=== PATIENT | male | born 1980 | race Hispanic/Latino ===

== ENCOUNTER 2024-06-28 10:44 | Emergency (ER) | payer BC ==
[~2024-06-28] VITALS: Ht 162.6 cm; Wt 88.2 kg
--- NOTE | 2024-06-28 10:56 | ERN ---
ED Note History of Present Illness Stated Complaint: HEADACHE Chief Complaint: Headache Time Seen by MD: 10:48 Time Seen by Midlevel: 10:48 Dictation: 43-year-old male who presents to the ED for evaluation of headache that he has had on and off for the past two months. Patient reports his PCP diagnosed with migraine headaches and prescribed him medication. Patient reports he has not taken all the time and has had no the name of the medication. Denies any fall, trauma, head injury. Reports throbbing headache to the left side of the head. No dizziness, nausea, vomiting, altered vision Allergies: Coded Allergies: No Known Drug Allergies (Unverified Allergy, Unknown, 06/28/24) Past Medical History RN Note Reviewed/Agreed w/PFSH: Yes Review of System Dictation Constitutional: Negative for fever,chills, and weight loss Eyes: Negative for injury, pain,redness, and discharge ENT: Negative for injury,pain or swelling Cardiovascular: Negative for chest pain, palpitations, and edema Respiratory: Negative for shortness of breath, cough, and wheezing, Abdomen/GI: Negative for abdominal pain, nausea, vomiting, diarrhea, and constipation Back: Negative for injury and pain : Negative for injury, bleeding and discharge MS/Extremity: Negative for injury and deformity Skin: Negative for rash, and discoloration Neuro: Negative for weakness, numbness, tingling, and seizure Psych: Negative for suicide ideation, homicidal ideation, and hallucinations Review of Systems: was completed Initial Vital Sign VS Vital Signs Date Time Temp Pulse Resp B/P (MAP) Pulse Ox O2 Delivery O2 Flow Rate FiO2 06/28/24 10:47 97.9 74 16 137/80 98 Room Air 0 Physical Exam Dictation General: awake, alert, NAD Head/Face: Normocephalic, atraumatic Eyes: PERRL, EOMI, vision at baseline ENT: oral cavity clear, TMs clear, no signs of infection Neck: Trachea midline, supple, no nuchal rigidity Cardiovascular: RRR, normal S1/S2, No MRGs, no JVD Respiratory: CTAB, no respiratory distress, No rales or wheezes Abdomen: Soft, non-tender, non-distended, normal bowel sounds, no guarding or rebound. Skin: Warm, dry, normal turgor, no rash MS/Extremity: Pulses equal, no cyanosis, neurovascular intact, FROM Neuro: COAx4, GCS 15, strength 5/5, CN 2-12 intact, normal cerebellar exam, normal gait, normal [id number], normal eowo-[id number] no visualized nystagmus Psych: Normal behavior, mood, and affect normal ED Course ED Course Orders Procedure Category Date Status Time Ketorolac PHA 06/28/24 Complete Tromethamine 15mg/Ml 10:51 Metoclopramide 10 PHA 06/28/24 Complete Mg/2 Ml Vial (Reglan 1 10:51 Diphenhydramine Hcl PHA 06/28/24 Complete (Benadryl Inj) 10:51 0.9%Nacl 1000ml (Ns PHA 06/28/24 Complete 1000ml) 10:51 Current Medications Medications (Trade) Dose Ordered Sig/Roselia Route PRN Reason Start Time Stop Time Status Last Admin Dose Admin Diphenhydramine HCl (BENAdryl INJ) 25 mg ONCE STAT IV 06/28/24 10:51 06/28/24 10:55 DC 06/28/24 13:27 Ketorolac Tromethamine (toRADol) 15 mg ONCE STAT IV 06/28/24 10:51 06/28/24 10:55 DC 06/28/24 13:26 Metoclopramide HCl (regLAN 10MG IV) 10 mg ONCE STAT IVP 06/28/24 10:51 06/28/24 10:55 DC 06/28/24 13:26 Sodium Chloride 1,000 ml @ 0 mls/hr Q0M STAT IV 06/28/24 10:51 06/28/24 10:55 DC 06/28/24 13:26 Vital Signs Date Time Temp Pulse Resp B/P (MAP) Pulse Ox O2 Delivery O2 Flow Rate FiO2 06/28/24 10:47 97.9 74 16 137/80 98 Room Air 0 Medical Decision Making MDM MDM: Differential diagnosis: Headache, migraine, tension headache, SAH Need for hospitalization: Patient does meet criteria for hospitalization. Need for emergency major/minor surgery: No I independently interpreted the test that were performed, results were reviewed by me and considered findings on radiology if ordered. Medical management and examination interpretation discussions were had by me with other qualified healthcare professionals as indicated for the patient's ca re. This patient presents with a headache most consistent with benign headache from either tension type headache vs migraine as he has been dealing with this headache for the past year but recently saw his PCP two months ago and prescribed medication but has been taking them daily.. No headache red flags. Normal [id number]-[id number], ecas-[id number]. No visualized nystagmus. Neurologic exam without evidence of meningismus, AMS, focal neurologic findings so doubt meningitis, encephalitis, stroke. Presentation not consistent with acute intracranial bleed to include SAH (lack of risk factors, headache history). No history of trauma so doubt ICH. Given history and physical temporal arteritis unlikely, as is acute angle closure glaucoma. Doubt carotid artery dissection given no focal neuro deficits, no neck trauma or recent neck strain. Patient with no signs of increased intracranial pressure or weight loss and history and physical suggest more benign headache so less likely mass effect in brain from tumor or abscess or idiopathic intracranial hypertension. Pain was controlled with headache cocktail and patient discharged home with PCP follow up. DX & DISP Disposition: Discharge Departure Impression: Primary Impression: Migraine Condition: Stable Scripts Ibuprofen (Ibuprofen) 600 Mg Tablet 1 TAB PO TID for pain for 10 Days, #30 TAB 0 Refills with food Prov: TANNA CASTELLON 06/28/24 Additional Instructions: DISCHARGE HOME. REST. FOLLOW UP WITH PRIMARY CARE IN 24 HOURS. RETURN TO THE ER FOR ANY ACUTE CHANGE. PATIENT WAS ALSO ADVISED TO FOLLOW-UP WITH PRIMARY CARE PHYSICIAN IN 1 TO 2 DAYS FOR CONTINUED MONITORING. ALL INSTRUCTIONS WERE GIVEN TO LAYMANS TERM AND PATIENT AGREEABLE TO DISCHARGE AND PROPER FOLLOW-UP. I have reviewed the case, and I agree with, Diagnosis and Plan TANNA CASTELLON Jun 28, 2024 10:56
[2024-06-28] MEDS: 0.9%NACL 1000ML 1,000 ML IV STA (13:26)
[2024-06-28] MEDS: metoCLOPRAmide 10 MG/2 ML VIAL IVP STA (13:26)
[2024-06-28] MEDS: ketOROlac 15MG/ML VIAL (15MG/ML) IV STA (13:26)
[2024-06-28] MEDS: DiphenhydrAMINE HCL 50 MG/ML VIAL IV STA (13:27)
[2024-06-28] MEDS ORDERED: FIORIT PO (14:19)
[2024-06-28] MEDS ORDERED: IBUP-2070 PO (14:21)
[2024-06-28 14:26] VITALS: BP 131/76; PULSE 74; RESP 16; TEMP 97.9; O2SAT 98
== END 2024-06-28 14:37 | disposition home or self-care (01) ==
LOC: EDH 10:44
DX: G43.909 Migraine, unspecified, not intractable, without status migrainosus (principal)
CPT/HCPCS: 99284; 96374; 96375; 96361; J1885; J1200; J7030; J2765

== ENCOUNTER 2024-07-16 20:06 | Emergency (ER) | payer BC ==
[~2024-07-16] VITALS: Ht 162.6 cm; Wt 85.7 kg
[~2024-07-16 20:06] MED LIST: IBUP-2070 PO
--- NOTE | 2024-07-16 20:49 | ERN ---
General Chief Complaint: Headache Stated Complaint: C/O CP W/HEADACHE Time Seen by MD: 20:20 Time Seen by Midlevel: 20:20 Source: patient History of Present Illness Initial Comments 43-year-old male who presents to the emergency department due to chest pain onset two days. Patient reports left-sided headache ongoing for multiple years, light sensitive sensitivity. Denies any shortness of breath, abdominal pain, fever or further associated symptoms. Patient previously diagnosed with migraines and is currently taking sumatriptan. PMHx HTN and DM Allergies: Coded Allergies: No Known Drug Allergies (Unverified Allergy, Unknown, 06/28/24) Home Meds Active Scripts Ibuprofen (Ibuprofen) 600 Mg Tablet, 1 TAB PO TID for pain for 10 Days, #30 TAB 0 Refills with food Prov:TANNA CASTELLON 06/28/24 Past Medical History Past Medical History: Diabetes-Type II, High Cholesterol, Hypertension, Se izure, Other Medical History Other: HX OF PEÑALOZA'S PALSY Past Surgical History: None ROS Dictation Constitutional: Negative for fever,chills, and weight loss Eyes: Negative for injury, pain,redness, and discharge ENT: Negative for injury,pain or swelling Cardiovascular: Positive for chest pain Negative for palpitations, and edema Respiratory: Negative for shortness of breath, cough, and wheezing, Abdomen/GI: Negative for abdominal pain, nausea, vomiting, diarrhea, and constipation Back: Negative for injury and pain : Negative for painful urination, bleeding or discharge MS/Extremity: Negative for injury and deformity Skin: Negative for rash, and discoloration Neuro: Positive for headache Negative for weakness, numbness, tingling, and seizure Psych: Negative for suicide ideation, homicidal ideation, and hallucinations Physical Exam Physical Exam Dictation General: awake, alert, no acute distress Head/Face: Normocephalic, atraumatic Eyes: PERRL, EOMI, normal conjunctiva ENT: oral cavity clear, oral mucosa moist Neck: Supple, normal range of motion Cardiovascular: RRR, normal S1/S2 Respiratory: CTAB, no respiratory distress, no rales or wheezes Abdomen: Soft, non-tender, non-distended, no guarding or rebound. Skin: Warm, dry, normal turgor, no rash MS/Extremity: Pulses equal, no cyanosis, neurovascular intact, FROM Neuro: COAx4, GCS 15, strength 5/5, CN 2-12 intact, normal cerebellar exam, normal gait Psych: Normal behavior, mood, and affect normal Results Laboratory and Microbiology Lab and Micro Result Laboratory Tests Test 07/16/24 21:04 White Blood Count 8.4 K/uL (4.8-10.8) Red Blood Count 5.48 MIL/uL (4.50-6.20) Hemoglobin 15.5 g/dL (14.0-18.0) Hematocrit 46.0 % (42-54) Mean Corpuscular Volume 83.9 fL (79-99) Mean Corpuscular Hemoglobin 28.3 pg (27.0-33.0) Mean Corpuscular Hemoglobin Concent 33.7 g/dL (32.0-36.0) Red Cell Distribution Width 12.5 % (11.0-15.5) Platelet Count 222 K/uL (130-400) Mean Platelet Volume 11.1 fL (7.5-10.5) H Immature Granulocyte % (Auto) 0.6 % (0-1) Neutrophils (%) (Auto) 62.8 % (40.0-77.0) Lymphocytes (%) (Auto) 22.2 % (21.0-51.0) Monocytes (%) (Auto) 12.6 % (3.0-13.0) Eosinophils (%) (Auto) 1.3 % (0.0-8.0) Basophils (%) (Auto) 0.5 % (0.0-5.0) Neutrophils # (Auto) 5.3 K/uL (1.8-7.7) Lymphocytes # (Auto) 1.9 K/uL (1.0-4.8) Monocytes # (Auto) 1.1 K/uL (0.1-1.0) H Eosinophils # (Auto) 0.11 K/uL (0.00-0.70) Basophils # (Auto) 0.04 K/uL (0.00-0.20) Absolute Immature Granulocyte (auto 0.05 K/uL (0-1) Nucleated Red Blood Cells 0.0 % (0.0-0.19) Sodium Level 134 mmol/L (136-145) L Potassium Level 3.9 mmol/L (3.5-5.1) Chloride Level 98 mmol/L (101-111) L Carbon Dioxide Level 32 mmol/L (21-32) Blood Urea Nitrogen 17 mg/dL (7-18) Creatinine 0.9 mg/dL (0.5-1.3) Glomerular Filtration Rate Calc 107 mL/min (>90) Random Glucose 254 mg/dL (70-105) H Total Calcium 8.8 mg/dL (8.5-10.1) Troponin I High Sensitivity < 4 ng/L (4-75) L MDM MDM: Differential diagnosis: Migraine, partial hemicrania, cluster headache, tension headache, headache from musculoskeletal issues in the neck Rationale: Tests considered and ordered secondary to shared decision making include: Previous outside records reviewed: Old ER visits. Risk of complication and/or morbidity or mortality of patient management: None Medications-Per medication reconciliation Need for hospitalization: Patient does not meet criteria for hospitalization. Need for emergency major/minor surgery: No There are no social concerns with this patient. Prescription drug management Prescriptions will include symptomatic care Patient's prior external medical records from other ER visits were reviewed by me as indicated. Prior testing and results from previous visits were reviewed. Prior tests were taken into account with medical decision making and resource utilization, independent historian/historians were used to obtain complete medical history. I independently interpreted the test that were performed, results were reviewed by me and considered findings on radiology if ordered. Medical management and examination interpretation discussions were had by me with other qualified healthcare professionals as indicated for the patient's care. ED Course Orders Procedure Category Date Status Time 12 Lead Ekg Tracing- EKG 07/16/24 Logged Technical 20:13 Cbc With Differential LAB 07/16/24 Complete 20:39 Basic Metabolic Panel LAB 07/16/24 Complete 20:39 Urinalysis LAB 07/16/24 Logged W/Microscopic 20:39 Drug Screen Urine LAB 07/16/24 Logged 20:39 Troponin I High LAB 07/16/24 Complete Sensitivity 20:39 12 Lead Ekg Tracing- EKG 07/16/24 Logged Technical 20:39 Ct Head/Brain W/O CT 07/16/24 Resulted Contrast 20:39 0.9%Nacl 1000ml (Ns PHA 07/16/24 Complete 1000ml) 21:00 Diphenhydramine Hcl PHA 07/16/24 Complete (Benadryl Inj) 21:00 Metoclopramide 10 PHA 07/16/24 Complete Mg/2 Ml Vial (Reglan 1 21:00 Ketorolac PHA 07/16/24 Complete Tromethamine 15mg/Ml 21:00 Current Medications Medications (Trade) Dose Ordered Sig/Roselia Route PRN Reason Start Time Stop Time Status Last Admin Dose Admin Diphenhydramine HCl (BENAdryl INJ) 25 mg ONCE ONCE IV 07/16/24 21:00 07/16/24 21:01 DC Ketorolac Tromethamine (toRADol) 15 mg ONCE ONCE IV 07/16/24 21:00 07/16/24 21:01 DC Metoclopramide HCl (regLAN 10MG IV) 10 mg ONCE ONCE IVP 07/16/24 21:00 07/16/24 21:01 DC Sodium Chloride 1,000 ml @ 0 mls/hr ONCE ONCE IV 07/16/24 21:00 07/16/24 21:01 DC Vital Signs Date Time Temp Pulse Resp B/P (MAP) Pulse Ox O2 Delivery O2 Flow Rate FiO2 07/16/24 20:09 100.2 78 20 143/89 99 Room Air 10:00 p.m. I independently evaluated the patient. This is a 43-year-old male with known history of migraines came in with headaches and he also reported a chest pain for the past [address] scan of the head is essentially negative. No intracranial abnormality was noted. Labs reviewed sodium 134 glucose is 254. CBC is with a normal limits. I had a long discussion with him and updated him on all the available lab tests in the CT scan results and he responded well to the symptomatic treatment. DX & DISP Disposition: Discharge Departure Impression: Primary Impression: Migraine Condition: Stable Additional Instructions: Patient and the caregiver have been informed of all the diagnostic tests and the imaging conducted during the today's visit to the emergency room and has verbalized understanding of the results I have personally reviewed and interpreted all diagnostic exams performed here in the ER today as well as the vital signs documented by the nursing staff. The patient is now being discharged to home and should follow up with the primary care physician or the specialist as directed by the ER staff. Follow-up with primary care provider in 1 to 2 days. Take medications as di rected here in the emergency room. Okay to continue home medications unless otherwise discussed during your visit in the emergency room today. Return to your nearest emergency room if symptoms worsen or if there is no improvement. Call 911 if you need immediate assistance. Take Tylenol or Motrin [id number] as needed and if no contraindications are present. Increase oral hydration. A wound culture or urine culture was ordered here in the emergency room department please follow-up with primary care provider and advise them to get repeat ports from our facility. If you had any Luis wrap/splints that were applied here, please do not remove them until you see your primary care or specialty. Referrals: AGUILAR LOVING (PCP) I have examined patient, & reviewed all documents, & agreed W/ the Diagnosis, and Plan CAROLINA ARGUELLO Jul 16, 2024 20:49 RACHEL GRIJALVA MD Jul 16, 2024 22:33
[2024-07-16] MEDS ORDERED: metoCLOPRAmide 10 MG/2 ML VIAL IVP ONE (21:00)
[2024-07-16] MEDS ORDERED: DiphenhydrAMINE HCL 50 MG/ML VIAL IV ONE (21:00)
[2024-07-16] MEDS ORDERED: ketOROlac 15MG/ML VIAL (15MG/ML) IV ONE (21:00)
[2024-07-16] MEDS ORDERED: 0.9%NACL 1000ML 1,000 ML IV ONE (21:00)
--- NOTE | 2024-07-16 21:14 | HMCIMG ---
Exam Type: CT HEAD/BRAIN W/O CONTRAST Clinical Information: Left sided headache Comparison: None CT Dose Index (CTDI): 57.33 mGy Dose Length Product (DLP): 956.79 total mGy-cm Findings: The examination is unremarkable. Hopper-white matter junction is preserved. No intra or extra axial lesions or fluid collections are seen. Specifically, hopper and white matter are normal in signal characteristics with normal caliber of ventricles and periventricular cisterns with no evidence of intra or or extra-axial hemorrhage, lacunar infarct, or major territorial infarct, mass, or other abnormality. There are no infarcts. There are no hemorrhages. Periventricular white matter locations are preserved. The orbital contents and structures of the posterior fossa are intact. Impression: Normal CT of the head. This study was performed using dose reduction techniques to include automated exposure control and/or adjustment of the mA and/or kV according to patient size.
[2024-07-16 21:18] LABS: BASOPHILS # (AUTO) 0.04 K/uL (0.00-0.20); BASOPHILS % (AUTO) 0.5 % (0.0-5.0); EOSINOPHILS # (AUTO) 0.11 K/uL (0.00-0.70); EOSINOPHILS % (AUTO) 1.3 % (0.0-8.0); IMMATURE GRANULOCYTE ABSOLUTE 0.05 K/uL (0-1); LYMPHOCYTES # (AUTO) 1.9 K/uL (1.0-4.8); LYMPHOCYTES % (AUTO) 22.2 % (21.0-51.0); MEAN CORPUSCULAR HEMOGLOBIN 28.3 pg (27.0-33.0); MEAN CORPUSCULAR HGB CONC 33.7 g/dL (32.0-36.0); MEAN CORPUSCULAR VOLUME 83.9 fL (79-99); MONOCYTES # (AUTO) 1.1 K/uL (0.1-1.0); MONOCYTES % (AUTO) 12.6 % (3.0-13.0); NEUTROPHILS # (AUTO) 5.3 K/uL (1.8-7.7); NEUTROPHILS % (AUTO) 62.8 % (40.0-77.0); PLATELET COUNT (AUTO) 222 K/uL (130-400); RED BLOOD CELL COUNT(AUTO) 5.48 MIL/uL (4.50-6.20); RED CELL DISTRIBUTION WIDTH 12.5 % (11.0-15.5); WHITE BLOOD COUNT (AUTO) 8.4 K/uL (4.8-10.8)
[2024-07-16 21:24] LABS: CREATININE 0.9 mg/dL (0.5-1.3); POTASSIUM 3.9 mmol/L (3.5-5.1)
[2024-07-16 23:00] VITALS: BP 127/78; PULSE 77; RESP 14; TEMP 97.9; O2SAT 100
--- NOTE | 2024-07-17 06:48 | EKG ---
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
== END 2024-07-16 23:58 | disposition home or self-care (01) ==
LOC: EDH 20:06
DX: G43.909 Migraine, unspecified, not intractable, without status migrainosus (principal); E11.9 Type 2 diabetes mellitus without complications; I10 Essential (primary) hypertension; E78.00 Pure hypercholesterolemia, unspecified; Z79.1 Long term (current) use of non-steroidal anti-inflammatories (NSAID); Z79.899 Other long term (current) drug therapy
CPT/HCPCS: 36415; 70450; 80048; 84484; 85025; 93005; 99284; J1200; J1885; J2765

== ENCOUNTER 2025-03-10 10:03 | Emergency (ER) | payer BC ==
[~2025-03-10] VITALS: Ht 162.6 cm; Wt 86.6 kg
[~2025-03-10 10:03] MED LIST changes: +IBUP-1492 PO; -IBUP-2070 PO
--- NOTE | 2025-03-10 10:27 | ERN ---
General Chief Complaint: Back Pain-No Injury Stated Complaint: CHRONIC LOW BACK PAIN Time Seen by MD: 10:07 Source: patient History of Present Illness Initial Comments Patient is a 44-year-old gentleman coming in complaining of low back pain. Patient states he had he has a extensive history of chronic back pain and repeated flare-ups. He states that on this occasion his lower back was hurting radiating down the left leg. Allergies: Coded Allergies: No Known Drug Allergies (Unverified Allergy, Unknown, 06/28/24) Home Meds Active Scripts Ibuprofen (Ibuprofen) 600 Mg Tablet, 1 TAB PO TID for pain for 10 Days, #30 TAB 0 Refills with food Prov:RAVINDERALBERTOTANNA Sanam SANTANA 06/28/24 Past Medical History Past Medical History: Diabetes-Type II, High Cholesterol, Hypertension, Seizure, Other Medical History Other: HX OF PEÑALOZA'S PALSY, CHRONIC BACK PAIN Past Surgical History: None ROS Dictation CONSTITUTIONAL: No chills, no fever, no weakness, no diaphoresis, no malaise. HEAD/FACE: No signs of trauma. EENT: No eye pain, no blurred vision, no tearing, no double vision, no ear pain, no ear discharge, no nose pain, no nasal congestion, no throat pain, no throat swelling, no mouth pain. RESPIRATORY: No cough, no orthopnea, no SOB, no stridor, no wheezing. CARDIOVASCULAR: No chest pain, no edema, no palpitations, no syncope. GASTROINTESTINAL/ABDOMINAL: No abdominal pain, no constipation, no diarrhea, no nausea, no vomiting. GENITOURINARY: No abnormal discharge, no dysuria, no frequent urination, no hematuria. No complaints of pain in the genitals. MUSCULOSKELETAL: back pain, no gout, no joint pain, no joint swelling, no muscle pain, no muscle stiffness, no neck pain. INTEGUMENTARY: No change in color, no change in hair/nails, no dryness, no lesion, no lumps, no rash. NEUROLOGICAL/PSYCH: No anxiety, not depressed, no emotional problem, no headache, no numbness, no pre-existing deficit, no history of seizures, no tremors, no weakness. HEMATOLOGIC/LYMPHATIC: Not anemic, no history of blood clots, no apparent bleeding, no bruising, glands not swollen. All Systems Negative, Except as Noted. Physical Exam Physical Exam Dictation VITAL SIGNS: Reviewed. GENERAL APPEARANCE: Alert, oriented x3, no acute distress, obese. HEAD AND FACE: Non-traumatic. EYES: PERRL, pink conjunctivas, eyelid no trauma, anterior chamber clear. EARS: Pinnas intact and no signs of trauma or erythema. Ear canals clear and no discharge. TMs no erythema. NOSE: No discharge, no bleeding. OROPHARYNX: Mouth normal, teeth no caries, tongue pink. Pharynx clear, no erythema. Tonsils no exudates, no abscesses noted. Mucous membrane moist. NECK: Supple, non-tender, no thyromegaly, no masses, no JVD, no bruits. BREAST: Deferred. CHEST: No tenderness, no crepitus, no paradoxical movement, no retractions. LUNGS: Clear, well-ventilated, symmetric, no rales, no wheezing, no rhonchi, no stridor, good breath sounds bilaterally. HEART: Regular rate, regular rhythm, no murmur, no gallops. VASCULAR: No peripheral edema. ABDOMEN: Soft, positive bowel sounds, nondistended, no guarding, nontender, no rebound, no masses no hepatomegaly, no splenomegaly, no Andarde's sign, no hernias. RECTAL: Deferred. GENITAL: Deferred. NEUROLOGICAL: Normal speech, gross motor function intact, gross sensory function intact. MUSCULOSKELETAL: Neck nontender, full range of motion, drying machine back tender, decrease range of motion. EXTREMITIES: Nontender, full range of motion. SKIN: Color pink, dry, no turgor, no rash, no lacerations, no abrasions, no contusions. LYMPHATICS: Deferred. Results Laboratory and Microbiology Labs Reviewed?: Yes MDM MDM: Differential diagnosis: Acute on chronic, history of herniated disc, Rationale: Tests considered and ordered secondary to shared decision making include: Previous outside records reviewed: Old ER visits. Risk of complication and/or morbidity or mortality of patient management: None Medications-Per medication reconciliation Need for hospitalization: Patient does not meet criteria for hospitalization. Need for emergency major/minor surgery: No Patient is a 44-year-old gentleman coming in complaining of back pain. He states that he does has a history of herniated disc in his has been evaluated by neurosurgeon pain management in his PCP. States that he is pending a procedure. He is here for pain control. Medications were given, he received antispasmodics anti-inflammatories we will be discharged in stable condition with a diagnosis of acute on chronic back pain. ED Course Orders Procedure Category Date Status Time Orphenadrine Citrate PHA 03/10/25 Complete (Norflex) 10:30 Triamcinolone Acet PHA 03/10/25 Complete 40mg/Ml 1ml (Kenalog 10:30 Gabapentin 100 Mg Cap PHA 03/10/25 Complete (Neurontin 100 Mg 10:30 Current Medications Medications (Trade) Dose Ordered Sig/Roselia Route PRN Reason Start Time Stop Time Status Last Admin Dose Admin Gabapentin (NEURontin 100 mg CAP) 100 mg ONCE ONCE PO 03/10/25 10:30 03/10/25 10:31 DC 03/10/25 10:45 Orphenadrine Citrate (Norflex) 60 mg ONCE ONCE IM 03/10/25 10:30 03/10/25 10:31 DC 03/10/25 10:44 Triamcinolone Acetonide (Kenalog 40) 40 mg ONCE ONCE IM 03/10/25 10:30 03/10/25 10:31 DC 03/10/25 10:44 Vital Signs Date Time Temp Pulse Resp B/P (MAP) Pulse Ox O2 Delivery O2 Flow Rate FiO2 03/10/25 10:04 97.9 82 16 174/95 99 Room Air 0 DX & DISP Disposition: Discharge Departure Impression: Primary Impression: Acute on chronic back pain Condition: Stable Scripts Gabapentin (Gabapentin) 100 Mg Capsule 1 CAP PO TID for 5 Days, #15 CAP 0 Refills Prov: CATHLEEN HERRING MD 03/10/25 Additional Instructions: FOLLOW-UP WITH PRIMARY CARE PROVIDER IN 1 TO 2 DAYS. TAKE MEDICATIONS DIRECTED HERE IN THE EMERGENCY ROOM. OKAY TO CONTINUE HOME MEDICATIONS UNLESS OTHERWISE DISCUSSED DURING YOUR VISIT IN THE EMERGENCY ROOM TODAY. RETURN TO YOUR NEAREST EMERGENCY ROOM IF SYMPTOMS WORSEN OR IF THERE IS NO IMPROVEMENT. CALL 911 IF YOU NEED IMMEDIATE ASSISTANCE. TAKE TYLENOL [id number] NEEDED AND IF NO CONTRAINDICATIONS ARE PRESENT. INCREASE ORAL HYDRATION. A WOUND CULTURE OR URINE CULTURE WAS ORDERED HERE IN THE EMERGENCY ROOM DEPARTMENT PLEASE FOLLOW-UP WITH PRIMARY CARE PROVIDER AND ADVISE THEM TO GET REPORTS FROM OUR FACILITY. IF YOU HAD ANY DIXIE WRAP/SPLINTS THAT WERE APPLIED HERE, PLEASE DO NOT REMOVE THEM UNTIL YOU SEE YOUR PRIMARY CARE OR SPECIALTY. Referrals: Referrals: AGUILAR LOVING (PCP) Time of Disposition: 10:57 CATHLEEN HERRING MD Mar 10, 2025 10:27
[2025-03-10] MEDS: ORPHENADRINE 60MG/2ML IM ONE (10:44)
[2025-03-10] MEDS: TRIAMCINOLONE ACETONIDE 40 MG/ML 1ML VIAL IM ONE (10:44)
[2025-03-10] MEDS ORDERED: GABA-529 PO (10:57)
[2025-03-10 10:58] VITALS: BP 161/87; PULSE 80; RESP 16; TEMP 97.9; O2SAT 98
== END 2025-03-10 11:01 | disposition home or self-care (01) ==
LOC: EDH 10:03
DX: G89.29 Other chronic pain (principal); M54.50 Low back pain, unspecified; E11.9 Type 2 diabetes mellitus without complications; E78.00 Pure hypercholesterolemia, unspecified; I10 Essential (primary) hypertension; Z79.1 Long term (current) use of non-steroidal anti-inflammatories (NSAID)
CPT/HCPCS: 99284; 96372 ×2; J3301; J2360